=== PATIENT | female | born 1950 ===

== ENCOUNTER 2021-12-24 08:45 | Inpatient (IN) | payer OTHER ==
[2021-12-24] MEDS ORDERED: AVAPRO150 MG PO (12:26)
[2021-12-24] MEDS ORDERED: TOPROL XL25 M1 PO (12:26)
[2021-12-24] MEDS ORDERED: SYNTHROID75 MCG PO (12:26)
[2021-12-24] MEDS ORDERED: MEMANTINE HCL10 MG PO ×2 (12:27→12:32)
[2021-12-24] MEDS ORDERED: ATORVASTATIN CA10 MG PO (12:30)
[2021-12-24] MEDS ORDERED: CHLORDIAZEPOXIDE PO (12:30)
[2021-12-24] MEDS ORDERED: LEXAPRO20 MG PO (12:31)
[2021-12-24] MEDS ORDERED: CLONAZEPAM0.5 MG PO (12:31)
[2021-12-24] MEDS ORDERED: ARICEPT10 MG PO (12:32)
[2021-12-29] MEDS ORDERED: FAMOTIDINE40 MG (08:07)
[2021-12-29] MEDS ORDERED: SERTRALINE HCL25 MG (08:08)
[2021-12-29] MEDS ORDERED: DOCUSATE CALCI240 MG (08:08)
[2021-12-29] MEDS ORDERED: DEXILANT60 MG (08:08)
[2021-12-29] MEDS ORDERED: CHLORDIAZEPOXI1 EACH (08:09)
== END 2021-12-30 14:34 | disposition home or self-care (01) | DRG 331 ==
LOC: ADM 08:45 → SURG 12-29 06:00 → O/R 12-29 06:00 → AMB-ENDOS 12-29 08:45 → SURH 12-29 08:45 → EDSTATUS 12-29 08:45 → SURG 12-29 10:12
PROVIDERS: ADMIT Colon & Rectal Surgery; ATTEND Colon & Rectal Surgery
PROC: 0DUR0JZ Supplement Anal Sphincter with Synthetic Substitute, Open Approach (ICD-10-PCS; 2021-12-29)
PROC: 0DBP8ZZ Excision of Rectum, Via Natural or Artificial Opening Endoscopic (ICD-10-PCS; 2021-12-29)
PROC: 0DJD8ZZ Inspection of Lower Intestinal Tract, Via Natural or Artificial Opening Endoscopic (ICD-10-PCS; 2021-12-29)
PROC: 0JQC0ZZ Repair Pelvic Region Subcutaneous Tissue and Fascia, Open Approach (ICD-10-PCS; principal; 2021-12-29 08:45)
DX: K62.3 Rectal prolapse (principal); N81.6 Rectocele; R15.9 Full incontinence of feces; Z20.822 Contact with and (suspected) exposure to COVID-19